=== PATIENT | male | born 1940 | race Caucasian/White ===

== ENCOUNTER 2019-07-15 16:53 | Inpatient (IN) | payer MEDICARE ==
[2019-07-15] MEDS ORDERED: Acetaminophen 500 MG TAB ONE (17:48)
[2019-07-15] MEDS ORDERED: methylPREDNISolone Sod Succ/PF 125 MG/2 ML VIAL ONE (17:53)
[2019-07-15 18:19] LABS: Anion Gap 16 mmol/L (10-20); BUN (Urea Nitrogen) 28 mg/dL (8.4-25.7); Calc. Creatinine Clearance 0 mL/min (70-130); Calcium 8.5 mg/dL (7.8-10.44); Carbon Dioxide 13 mmol/L (23-31); Chloride 112 mmol/L (98-107); Estimated GFR-MDRD 42; Glucose 88 mg/dL (83-110); Potassium 5.1 mmol/L (3.5-5.1); Sodium 136 mmol/L (136-145)
[2019-07-15 18:38] LABS: CKMB 1.6 ng/mL (0-6.6)
--- NOTE | 2019-07-15 19:02 | PDOC.FPRHP ---
- History of Present Illness Chief Complaint: fever, cough History of Present Illness: Pt is 79-yo M w/ CAD who started feeling poor two days ago. It started with nasal congestion; then he developed shakes and fever of 101.4 at home. Associated w/ nonproductive cough. Sick contacts may have included many people; he went to a large meeting of 200 people recently. Has had PNA and flu shot this year. He is not on oxygen at home. Dr. Jones is his editor news. ED Course: At outside ED, he had new O2 requirement up to 5 L NC. Received cefepime. Result of Influenza A+ returned so he was given 75mg of tamiflu around 1600 on . Received 2L NS along w/ steroids and DuoNebs. He was then transferred to our ED for lack of improvement w/ nebs. He was given DuoNeb here and began to breath at 96% O2 saturation on room air. 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 - previous smoker. 1 pack every couple days, since 1956. - occasional alcohol. - denies drugs. - Review of Systems General: reports: fever/chills, fatigue. denies: weight/appetite/sleep changes ENT: reports: nasal congestion Respiratory: reports: cough, shortness of breath Cardiovascular: denies: chest pain, palpitation, edema Gastrointestinal: denies: nausea, vomiting, diarrhea, constipation, abdominal pain Genitourinary: denies: dysuria Skin: denies: rashes Musculoskeletal: denies: pain, tenderness Neurological: reports: numbness, weakness Psychological: denies: anxiety, depression - Vital signs BP: 98/50, MAP: 66, Pulse: 77, Resp: 23, Temp: 99.7 (Oral), Pain: 0, O2 sat: 96 on (Room Air), Time: 07/15/2019 19:18. - Physical Exam Constitutional: NAD, awake, alert and oriented, well developed HEENT: normocephalic and atraumatic, PERRLA, EOMI, conjunctiva clear, grossly normal vision, grossly normal hearing, MMM Neck: supple, trachea midline, no thyromegaly Heart: RRR, normal S1/S2, no murmurs/rubs/gallops Lungs: CTAB, no respiratory distress, no wheezing -Lungs: poor air movement, prolonged expiratory phase Abdomen: soft, non-tender, bowel sounds present, no masses/distention Musculoskeletal: normal structure Neurological: no focal deficit Skin: no rash/lesions Heme/Lymphatic: no unusual bruising or bleeding Psychiatric: normal mood and affect FMR H&P: Results - Labs Result Diagrams: 07/15/19 17:51 Lab results: Sodium 136 mmol/L (136-145) 07/15/19 17:51 Potassium 5.1 mmol/L (3.5-5.1) 07/15/19 17:51 Chloride 112 mmol/L (98-107) H 07/15/19 17:51 Carbon Dioxide 13 mmol/L (23-31) L 07/15/19 17:51 BUN 28 mg/dL (8.4-25.7) H 07/15/19 17:51 Creatinine 1.62 mg/dL (0.7-1.3) H 07/15/19 17:51 Glucose 88 mg/dL (83-110) 07/15/19 17:51 Lactic Acid 2.2 mmol/L (0.5-2.2) 07/15/19 17:51 Calcium 8.5 mg/dL (7.8-10.44) 07/15/19 17:51 CK-MB (CK-2) 1.6 ng/mL (0-6.6) 07/15/19 17:51 - EKG Interpretation EKG: paced. FMR H&P: A/P - Problem List (1) Acute respiratory failure with hypoxia Current Visit: Yes Status: Acute Code(s): J96.01 - ACUTE RESPIRATORY FAILURE WITH HYPOXIA (2) Sepsis associated hypotension Current Visit: Yes Status: Acute Code(s): A41.9 - SEPSIS, UNSPECIFIED ORGANISM; I95.9 - HYPOTENSION, UNSPECIFIED (3) Influenza A Current Visit: Yes Status: Acute Code(s): J10.1 - FLU DUE TO OTH IDENT INFLUENZA VIRUS W OTH RESP MANIFEST (4) CAD (coronary artery disease) Current Visit: Yes Status: Acute Code(s): I25.10 - ATHSCL HEART DISEASE OF [place] CORONARY ARTERY W/O ANG PCTRS - Plan 79 yo M admitted for: Sepsis 2/2 influenza A Acute hypoxic respiratory failure - supplemental O2 - Procalcitonin negative, no abx - continue Tamiflu 75mg BID - DuoNebs q4h scheduled, q2h prn - CXR pending Elevated troponin - trend SHOAIB vs CKD - baseline 5 years ago was ~1.1-1.2 - will monitor in AM - fluid resuscitate Chronic conditions: CAD CHF - continue home meds - monitor on continuous telemetry Hx of CVA - monitor BPH - continue home meds. Code: DNR-DNI Fluids: LR at 125 mL/hr VTE ppx: none GI ppx: none Diet: MAYA Dumas MD PGY1 Disposition/LOS: admit to inpatient telemetry. Expected LOS > 48H. FMR H&P: Upper Level - Plan Date/Time: 07/15/191900 HPI: This is a 79 yo M being admitted for acute hypoxic resp failure 2/2 influenza A. His PMH includes CAD s/p 6 stents, CVAx3 per his report, Pacemaker/AICD placement, former smoker 50+ pack-years. He states for the last 2 days or so he has had increasing cough with myalgias. Cough is non-productive, states he was at a alliance party and thinks he may have contracted illness there. Denies orthopnea. Denies SOB, chest pain, or palpitations. Main reason he came to the ED was he was feeling general malaise. REVIEW OF SYSTEMS: Gen: +fever Neuro: denies headache Eyes: no visual changes ENT: no hearing changes, no sore throat, no congestion Resp: see hpi Card: denies CP, palpitations GI: no N/V/D, no abdominal pain Heme: no easy bruising/bleeding Skin: no rash, no erythema PHYSICAL EXAMINATION: General: NAD, alert and oriented x3 HEENT: PERRLA, EOMI, normal sclera, oropharynx without erythema or exudate Neck: Supple. Full ROM. Heart/Cardiovascular System: RRR, Cap refill < 3 seconds, no rub, no murmur Lungs/Respiratory System: CTA-B, no resp distress Abdomen/Gastro-Intestinal System: no abdominal tenderness, normal bowel sounds Extremities: Warm extremities. No cyanosis or edema Neuro: No gross deficits appreciated. 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 Dumas /Valentin I agree with the History, Examination, Assessment and Plan documented above with any addition or exceptions noted below. See my event note for details.
[2019-07-15] MEDS ORDERED: Ondansetron PF 4 MG/2 ML Vial IVP PRN (19:18)
[2019-07-15] MEDS ORDERED: Acetaminophen 325 MG TAB PO PRN (19:18)
[2019-07-15] MEDS ORDERED: Guaifenesin DM 100-10/5 ML UDCUP PO PRN (19:18)
[2019-07-15] MEDS ORDERED: Ondansetron ODT 4 MG TAB PO PRN (19:18)
[2019-07-15] MEDS ORDERED: Sodium Chloride 0.9% 1,000 ML IV SCH ×2 (19:30→23:42)
[2019-07-15 21:20] LABS: Lactic Acid 0.8 mmol/L (0.5-2.2)
[2019-07-15 21:29] LABS: Troponin I 0.044 ng/mL (< 0.028)
[2019-07-15 22:30] VITALS: BMI 25.2
--- NOTE | 2019-07-15 23:06 | PDOC.EVN ---
Event Note - Event Note Event Note: Date/Time: 07/15/192099 I personally performed or re-performed the physical examination and medical decision making. I have verified all resident documentation or findings, including history, physical exam and/or medical decision making. 79 yo WM PMH CVD, CAD, prior [place], and HFrEF s/p pacemaker/AICD placement. Presents with 2 day hx of cough, maliase, bodyaches, and fever. States his made him go to ER after 2 days of sx. Found to influenza A in [place] [facility] and to be hypoxic. Received nebs, cefepime, tamiflu, NS 2L bolus due to BP 90/60s, and solumedrol. Exam unremarkable and on room air at time of examination. BP was 100s/70s. Fever 102 documented in [place]. EKG unremarkable except for paced rhythm. Labs show elevated white count. CXR possible left infiltrate. Admit for sepsis 2/2 influenza A and acute hypoxic resp distress 2/2 influenza A. Gentle IV fluids given HFrEF hx. continue tamiflu. Procal 0.11 so hold abx for now. Will get PA and lateral CXR in morning to evaluate infiltrate. Inpatient, tele, >2 midnights.
[2019-07-16 04:25] LABS: #Lymphocytes 0.7 thou/uL (1.20-3.40); #Monocytes 0.3 thou/uL (0.11-0.59); #Neutrophils 13.8 thou/uL (1.40-6.50); %Eosinophils 0.1 % (0.0-10.0); %Lymphocytes 4.6 % (21.0-51.0); %Neutrophils 93.4 % (42.0-75.0); Hemoglobin 11.5 g/dL (14.0-18.0); Mean Corpuscular HGB CONC 33.4 g/dL (32.0-36.0); Mean Corpuscular Hemoglobin 33.1 pg (27.0-31.0); Mean Platelet Volume 8.1 fL (7.4-10.4); Platelet Count 140 thou/uL (130-400); RBC Distribution Width 13.6 % (11.5-14.5); Red Blood Cell (RBC) Count 3.48 mill/uL (4.70-6.10); White Blood Cell (WBC) Count 14.7 thou/uL (4.8-10.8)
[2019-07-16 04:47] LABS: Anion Gap 10 mmol/L (10-20); BUN (Urea Nitrogen) 28 mg/dL (8.4-25.7); Calc. Creatinine Clearance 55 mL/min (70-130); Calcium 8.3 mg/dL (7.8-10.44); Carbon Dioxide 20 mmol/L (23-31); Chloride 113 mmol/L (98-107); Estimated GFR-MDRD 52; Glucose 153 mg/dL (83-110); Potassium 4.2 mmol/L (3.5-5.1); Sodium 139 mmol/L (136-145)
[2019-07-16 08:29] VITALS: TEMP 97.4
--- NOTE | 2019-07-16 08:50 | PDOC.FM ---
- Subjective Subjective: Patient required ~2L overnight to maintain sats in low 90s. Otherwise, NAEO. Patient has no complaints this AM. Patient denies being short of breath despite only satting in the low 90s on 2L. Oxygen levels did increase to mid-to-high 90s after a few big deep breaths though. Is ready to go home. - Objective MAR Reviewed: Yes Vital Signs & Weight: Vital Signs (12 hours) Temp Pulse Resp BP Pulse Ox 07/16/19 08:26 74 16 92 L 07/16/19 08:19 97.4 F L 73 16 139/63 97 07/16/19 04:15 79 18 114/54 L 92 L 07/16/19 02:19 16 07/16/19 00:00 116/54 L 07/15/19 22:30 97.8 F 76 20 113/65 91 L 07/15/19 22:08 78 16 91 L Weight Weight 84.323 kg I&O: 07/15/19 07/16/19 07/17/19 06:59 06:59 06:59 Intake Total 1700 Output Total 1000 Balance 700 Result Diagrams: 07/16/19 04:11 07/16/19 04:11 Phys Exam - Physical Examination Constitutional: NAD HEENT: moist MMs Neck: supple Respiratory: no wheezing, no rales, no rhonchi, clear to auscultation bilateral Cardiovascular: RRR, no significant murmur Gastrointestinal: soft, no distention Musculoskeletal: no edema Neurological: non-focal, moves all 4 limbs Psychiatric: normal affect, A&O x 3 Skin: no rash, normal turgor Dx/Plan (1) HFrEF (heart failure with reduced ejection fraction) Code(s): I50.20 - UNSPECIFIED SYSTOLIC (CONGESTIVE) HEART FAILURE Status: Acute (2) HTN (hypertension) Code(s): I10 - ESSENTIAL (PRIMARY) HYPERTENSION Status: Acute (3) Neuropathy Code(s): G62.9 - POLYNEUROPATHY, UNSPECIFIED Status: Acute (4) BPH (benign prostatic hyperplasia) Code(s): N40.0 - BENIGN PROSTATIC HYPERPLASIA WITHOUT LOWER URINRY TRACT SYMP Status: Acute (5) History of CVA (cerebrovascular accident) Code(s): Z86.73 - PRSNL HX OF TIA (TIA), AND CEREB INFRC W/O RESID DEFICITS Status: Acute (6) Gout Code(s): M10.9 - GOUT, UNSPECIFIED Status: Acute (7) Acute respiratory failure with hypoxia Code(s): J96.01 - ACUTE RESPIRATORY FAILURE WITH HYPOXIA Status: Acute (8) CAD (coronary artery disease) Code(s): I25.10 - ATHSCL HEART DISEASE OF [place] CORONARY ARTERY W/O ANG PCTRS Status: Acute (9) Influenza A Code(s): J10.1 - FLU DUE TO OTH IDENT INFLUENZA VIRUS W OTH RESP MANIFEST Status: Acute (10) Sepsis associated hypotension Code(s): A41.9 - SEPSIS, UNSPECIFIED ORGANISM; I95.9 - HYPOTENSION, UNSPECIFIED Status: Resolved - Plan Plan: 79 yo M admitted for: Sepsis 2/2 influenza A, resolved - VS WNLs with exception of patient requiring 2L NC to maintain sats. HR & BP WNLs. WBC still mildly elevated at 14.7. Acute hypoxic respiratory failure, improving - supplemental O2 PRN but will wean as tolerated - Procalcitonin negative, no abx - continue Tamiflu 75mg BID - DuoNebs q4h prn - Repeat 2V CXR pending for this AM. Influenza A - Continue tamiflu & wean O2 as tolerated by patient. Tylenol PRN for fever/ pain. Elevated troponin - Likely 2/2 demand ischemia in setting of sepsis. No chest pain on presentation or this AM. Will repeat with an EKG should patient develop any CP. SHOAIB vs CKD - baseline 5 years ago was ~1.1-1.2. Down to 1.33 this AM s/p IVFs overnight. - Will encourage PO hydration & continue to trend. CAD - Home meds. CHF - Not in acute exacerbation. EF 20-25% per 2012 ECHO. - continue home meds - monitor on telemetry - Strict I&Os & QD weights. Hx of CVA - Home meds BPH - continue home meds. Neuropathy - Will resume home meds pending med rec Gout - Home meds Code: DNR-DNI Fluids: SL VTE ppx: Lovenox GI ppx: none Diet: MAYA Dumas MD PGY1 Disposition/LOS: Possible d/c later this afternoon if patient no longer requiring O2 to maintain sats.
[2019-07-16] MEDS ORDERED: Carvedilol 3.125 MG TAB PO SCH (09:00)
[2019-07-16] MEDS ORDERED: Aspirin 81 mg Enteric Coated Tablet PO SCH (09:00)
[2019-07-16] MEDS ORDERED: Spironolactone 25 MG TAB PO SCH (09:00)
[2019-07-16] MEDS ORDERED: Lisinopril 5 MG TAB PO SCH (09:00)
[2019-07-16] MEDS ORDERED: Enoxaparin Sodium 40 MG/0.4 ML SYRINGE SC SCH (09:00)
--- NOTE | 2019-07-16 09:09 | RAD ---
EXAM: Chest 2 views: HISTORY: Cough COMPARISON: 07/15/2019 FINDINGS: There is a normal-sized cardiomediastinal silhouette. A pacemaker is seen with its leads in the righ t atrium, right ventricle, and coronary sinus. There is no evidence of consolidation, mass, or pleural effusion. The bones are unremarkable. IMPRESSION: No evidence of acute cardiopulmonary disease
[2019-07-16] MEDS: Oseltamivir 75 MG CAP PO SCH ×2 (09:51→10:17)
[2019-07-16 16:21] VITALS: BP 127/60
[2019-07-16] MEDS ORDERED: FLU VACC TS2019-20(65YR UP)/PF 180 MCG/0.5 ML SYRINGE IM ONE (21:00)
[2019-07-16] MEDS ORDERED: Tamsulosin HCl 0.4 MG CAP PO SCH (21:00)
[2019-07-17] MEDS ORDERED: Allopurinol 300 MG TAB PO SCH (09:00)
== END 2019-07-16 16:28 | disposition home or self-care (01) | DRG 871 ==
LOC: ERS 16:53 → 2NO 20:19
PROVIDERS: ADMIT Family Medicine; ATTEND Family Medicine
DX: A41.89 Other specified sepsis (principal); J96.01 Acute respiratory failure with hypoxia; N17.9 Acute kidney failure, unspecified; I13.0 Hypertensive heart and chronic kidney disease with heart failure and stage 1 through stage 4 chronic kidney disease, or unspecified chronic kidney disease; I24.8 Other forms of acute ischemic heart disease; I50.22 Chronic systolic (congestive) heart failure; J10.1 Influenza due to other identified influenza virus with other respiratory manifestations; N40.0 Benign prostatic hyperplasia without lower urinary tract symptoms; N18.9 Chronic kidney disease, unspecified; G62.9 Polyneuropathy, unspecified; M10.9 Gout, unspecified; Z66 Do not resuscitate; I25.10 Atherosclerotic heart disease of native coronary artery without angina pectoris; Z87.01 Personal history of pneumonia (recurrent); Z95.810 Presence of automatic (implantable) cardiac defibrillator; Z98.890 Other specified postprocedural states; Z89.422 Acquired absence of other left toe(s); Z82.49 Family history of ischemic heart disease and other diseases of the circulatory system; Z86.73 Personal history of transient ischemic attack (TIA), and cerebral infarction without residual deficits
CPT/HCPCS: 36415; 71046; 80048; 82553; 83605; 84145; 85025; 93005; 94640; 96374; J1650; J2930; J7620